=== PATIENT | female | born 1990 | race Caucasian/White ===

== ENCOUNTER 2018-08-23 15:58 | Outpatient (CLI) | payer OTHER | END 2018-08-23 15:59 | disposition home or self-care (01) | LOC: C.LAB 15:58 | DX: Z34.81 Encounter for supervision of other normal pregnancy, first trimester (principal) ==

== ENCOUNTER 2018-09-14 08:42 | Emergency (ER) | payer OTHER ==
[2018-09-14 08:43] VITALS: BMI 28.5
[2018-09-14 08:50] VITALS: RESP 18; O2SAT 99
[2018-09-14 09:25] LABS: BASO % 0.5 % (0.0-2.0); EOS # 0.1 K/uL (0.0-0.7); EOS % 1.5 % (0.0-4.0); HEMOGLOBIN 11.7 g/dL (11.0-16.0); LYMPH # 1.5 K/uL (1.0-4.3); LYMPH % 19.8 % (20.0-40.0); MEAN CELL VOLUME 82.7 fL (81.0-99.0); MEAN CORPUSCULAR HGB CONC 33.8 g/dL (33.0-37.0); MEAN PLATELET VOLUME 7.8 fL (7.2-11.7); MONO # 0.4 K/uL (0.0-0.8); MONO % 5.7 % (0.0-10.0); NEUT # 5.6 K/uL (1.8-7.0); NEUT % 72.5 % (50.0-75.0); RBC 4.18 Mil/uL (3.80-5.20); RED CELL DISTRIBUTION WIDTH 15.3 % (11.5-14.5); WHITE BLOOD COUNT 7.7 K/uL (4.8-10.8)
[2018-09-14 09:37] LABS: ALB/GLOB RATIO 1.1 (1.0-2.1); ALBUMIN 3.8 g/dL (3.5-5.0); ALT/SGPT 18 U/L (9-52); AST/SGOT 19 U/L (14-36); BLOOD UREA NITROGEN 4 mg/dL (7-17); GFR NON-AFRICAN AMERICAN > 60
[2018-09-14 09:40] LABS: SQUAMOUS EPITHIAL 7 /hpf (0-5); URINE AMORPHOUS SEDIMENT MODERATE /ul (<OCC); URINE BACTERIA RARE (<OCC); URINE BILIRUBIN NEGATIVE (NEGATIVE); URINE CLARITY Hazy (Clear); URINE COLOR Yellow (YELLOW); URINE GLUCOSE (UA) NORMAL (Normal); URINE LEUKOCYTE ESTERASE NEG Leu/uL (Negative); URINE PROTEIN NEGATIVE (NEGATIVE); URINE UROBILINOGEN NORMAL mg/dL (0.2-1.0)
[2018-09-14 09:41] LABS: URINE BLOOD 1+ (NEGATIVE)
--- NOTE | 2018-09-14 09:49 | C.PDOC ---
History Of Present Illness 28 y/o female presents to ED with chief complaint of vaginal spotting. Patient states her last menstrual period was 06/13/18. Reports she has no care. Today patient states she felt suprapubic cramps mostly on right side. Otherwise she denies dysuria, vomiting, fever, or other complaints. Time Seen by Provider: 09/14/18 08:50 Chief Complaint (Nursing): Female Genitourinary History Per: Patient History/Exam Limitations: no limitations Onset/Duration Of Symptoms: Hrs Current Symptoms Are (Timing): Still Present Past Medical History Reviewed: Historical Data, Nursing Documentation, Vital Signs Vital Signs: Last Vital Signs Temp 98.4 F 09/14/18 08:49 Pulse 67 09/14/18 08:49 Resp 18 09/14/18 08:49 BP 114/72 09/14/18 08:49 Pulse Ox 99 09/14/18 08:49 Primary Care Provider: Linus Figueroa Family History: States: No Known Family Hx - Social History Hx Tobacco Use: No Hx Alcohol Use: No Hx Substance Use: No - Immunization History Hx Tetanus Toxoid Vaccination: No Hx Influenza Vaccination: No Hx Pneumococcal Vaccination: No Review Of Systems Except As Marked, All Systems Reviewed And Found Negative. Constitutional: Negative for: Fever Gastrointestinal: Positive for: Abdominal Pain (suprapubic cramps, mostly on right side). Negative for: Nausea, Vomiting Genitourinary: Positive for: Other (Vaginal Spotting). Negative for: Dysuria Musculoskeletal: Negative for: Back Pain Physical Exam - Physical Exam Appears: Non-toxic, No Acute Distress Skin: Warm, Dry Head: Atraumatic, Normacephalic Eye(s): bilateral: Normal Inspection Oral Mucosa: Moist Neck: Supple Cardiovascular: Rhythm Regular, No Murmur Respiratory: Normal Breath Sounds Gastrointestinal/Abdominal: Soft, No Tenderness, No Guarding, No Rebound Back: No CVA Tenderness Extremity: Bilateral: Atraumatic, Normal ROM Neurological/Psych: Oriented x3, Normal Speech ED Course And Treatment - Laboratory Results Result Diagrams: 09/14/18 09:18 09/14/18 09:18 Lab Results: Total Bilirubin 0.3 mg/dL (0.2-1.3) 09/14/18 09:18 AST 19 U/L (14-36) 09/14/18 09:18 ALT 18 U/L (9-52) 09/14/18 09:18 Alkaline Phosphatase 67 U/L (38-126) 09/14/18 09:18 Total Protein 7.2 g/dL (6.3-8.3) 09/14/18 09:18 Albumin 3.8 g/dL (3.5-5.0) 09/14/18 09:18 Globulin 3.4 gm/dL (2.2-3.9) 09/14/18 09:18 Albumin/Globulin Ratio 1.1 (1.0-2.1) 09/14/18 09:18 Urine Color Yellow (YELLOW) 09/14/18 09:18 Urine Clarity Hazy (Clear) 09/14/18 09:18 Urine pH 8.0 (5.0-8.0) 09/14/18 09:18 Ur Specific [place] 1.013 (1.003-1.030) 09/14/18 09:18 Urine Protein Negative mg/dL (NEGATIVE) 09/14/18 09:18 Urine Glucose (UA) Normal mg/dL (Normal) 09/14/18 09:18 Urine Ketones Negative mg/dL (NEGATIVE) 09/14/18 09:18 Urine Blood 1+ (NEGATIVE) H 09/14/18 09:18 Urine Nitrate Negative (NEGATIVE) 09/14/18 09:18 Urine Bilirubin Negative (NEGATIVE) 09/14/18 09:18 Urine Urobilinogen Normal mg/dL (0.2-1.0) 09/14/18 09:18 Ur Leukocyte Esterase Neg Faustino/uL (Negative) 09/14/18 09:18 Urine RBC (Auto) 2 /hpf (0-3) 09/14/18 09:18 Ur Squamous Epith Cells 7 /hpf (0-5) H 09/14/18 09:18 Amorphous Sediment Moderate /ul (<OCC) H 09/14/18 09:18 Urine Bacteria Rare (<OCC) 09/14/18 09:18 O2 Sat by Pulse Oximetry: 99 (RA) Pulse Ox Interpretation: Normal - CT Scan/US Obstetrics US Other Rad Studies (CT/US): Read By Radiologist, Radiology Report Reviewed CT/US Interpretation: FINDINGS: UTERUS: Gestational sac: Single intrauterine gestation. Heart rate: 144 bpm. age (Ultrasound estimated): 13 weeks 3 days +/-1 week 1 day. Josefina-gestational hemorrhage: None. Date of delivery (Ultrasound estimated) : 03/19/2019. Uterus measures 15.2 x 7.8 x 11.7 cm. Normal in size and appearance. CERVIX: Measures 3.6 cm. Long and closed. No cervical abnormality seen. RIGHT OVARY: Measures 3.3 x 2.9 x 3.3 cm. No mass lesion. Normal flow. Corpus luteum cyst measures 1.7 x 1.2 x 1.5 centimeter is noted at the right adnexa. LEFT OVARY: Was not visualized. FREE FLUID: None. OTHER FINDINGS: None. IMPRESSION: Single intrauterine live with ultrasound estimated gestational age of 13 weeks 3 days +/-1 week 1 day. Estimated date of delivery by ultrasound is 03/19/2019. Medical Decision Making Medical Decision Making: Plan: --Urine Culture --Urinalysis -- 1st Trimester US --Labs Disposition Counseled Patient/Family Regarding: Studies Performed, Diagnosis, Need For Followup - Disposition Referrals: Idalmis Delgado MD [Staff Provider] - Disposition: HOME/ ROUTINE Disposition Time: 11:39 Condition: STABLE Instructions: Threatened Miscarriage (DC) Forms: Work/School/Gym Excuse, [facility] (Peruvian) - POA Present On Arrival: None - Clinical Impression Clinical Impression: Threatened miscarriage - Scribe Statement The provider has reviewed the documentation as recorded by the Lorrie Staley Provider Attestation: All medical record entries made by the Silveribvilma were at my direction and personally dictated by me. I have reviewed the chart and agree that the record accurately reflects my personal performance of the history, physical exam, medical decision making, and the department course for this patient. I have also personally directed, reviewed, and agree with the discharge instructions and d isposition.
--- NOTE | 2018-09-14 11:40 | US ---
Date of service: 09/14/2018 PROCEDURE: OB Pelvic Ultrasound HISTORY: , bleeding LMP: 06/13/2018 COMPARISON: None available. FINDINGS: UTERUS: Gestational sac: Single intrauterine gestation. Heart rate: 144 bpm. age (Ultrasound estimated): 13 weeks 3 days +/-1 week 1 day Josefina-gestational hemorrhage: None. Date of delivery (Ultrasound estimated) : 03/19/2019 Uterus measures 15.2 x 7.8 x 11.7 cm. Normal in size and appearance. CERVIX: Measures 3.6 cm. Long and closed. No cervical abnormality seen. RIGHT OVARY: Measures 3.3 x 2.9 x 3.3 cm. No mass lesion. Normal flow. Corpus luteum cyst measures 1.7 x 1.2 x 1.5 centimeter is noted at the right adnexa. LEFT OVARY: Was not visualized. FREE FLUID: None. OTHER FINDINGS: None. IMPRESSION: Single intrauterine live with ultrasound estimated gestational age of 13 weeks 3 days +/-1 week 1 day. Estimated date of delivery by ultrasound is 03/19/2019.
[2018-09-14 12:15] VITALS: BP 104/69; PULSE 60; TEMP 98.6
== END 2018-09-14 12:15 | disposition home or self-care (01) ==
LOC: C.ER 08:42
DX: O20.0 Threatened abortion (principal); Z3A.13 13 weeks gestation of pregnancy